=== PATIENT | female | born 1995 | race Caucasian/White ===

== ENCOUNTER 2025-05-04 23:09 | Emergency (ER) | payer BC ==
[~2025-05-04] VITALS: Ht 165.1 cm; Wt 52.2 kg
[2025-05-04 23:38] VITALS: TEMP 98.2
[2025-05-05] MEDS ORDERED: ACETAMINOPHEN ES 500 MG TABLET ONE (00:11)
[2025-05-05] MEDS: ACETAMINOPHEN ES 500 MG TABLET PO ONE (00:14)
[2025-05-05 01:00] VITALS: BP 110/70; O2SAT 99
== END 2025-05-05 01:30 | disposition home or self-care (01) ==
LOC: ER 23:26
DX: S92.214A Nondisplaced fracture of cuboid bone of right foot, initial encounter for closed fracture (principal); M79.671 Pain in right foot; F17.200 Nicotine dependence, unspecified, uncomplicated; Z88.6 Allergy status to analgesic agent; X58.XXXA Exposure to other specified factors, initial encounter; Y93.89 Activity, other specified; Y92.89 Other specified places as the place of occurrence of the external cause; Y99.8 Other external cause status
CPT/HCPCS: 73630-TC